=== PATIENT | female | born 1960 | race Caucasian/White ===

== ENCOUNTER → 2016-09-14 | Outpatient (CLI) | payer OTHER ==
[~2016-09-14] MED LIST: ALDACTONE 25MG25 MG PO; ASPIR 8181 MG PO; CIPRO500 MG PO; CYMBALTA60 MG PO; FISH OIL300 MG PO; FLAGYL500 MG PO; FLEXERIL 10 MG10 MG PO; FUROSEMIDE40 MG PO; GLUCOPHAGE 500500 MG GT; IMDUR ER TAB 6060 MG PO; LEVEMIR100 UNIT/1 SQ; METOPROLOL SUC100 MG PO; NEURONTIN 300300 MG PO; POTASSIUM99 M1 PO; PROVENTIL HFA 61 INH INH; SYNTHROID 50 M50 MCG GT; TRAMADOL HCL50 MG PO; VITAMIN D1000 UNIT PO
== END ==
LOC: CT 09-06 13:00
DX: I88.8 Other nonspecific lymphadenitis (principal)
CPT/HCPCS: J7050; Q9962

== ENCOUNTER → 2020-04-01 | Outpatient (CLI) | payer OTHER, SELFPAY | LOC: NM 10:06 | DX: R13.10 Dysphagia, unspecified (principal); R93.3 Abnormal findings on diagnostic imaging of other parts of digestive tract | CPT/HCPCS: 78264; A9541 ==

== ENCOUNTER → 2020-05-27 | Outpatient (CLI) | payer OTHER, SELFPAY | LOC: RAD 13:37 | DX: M25.512 Pain in left shoulder (principal); M25.532 Pain in left wrist; R60.0 Localized edema; M19.032 Primary osteoarthritis, left wrist; M19.042 Primary osteoarthritis, left hand | CPT/HCPCS: 73030; 73110; 73130 ==

== ENCOUNTER → 2021-01-14 | Outpatient (CLI) | payer OTHER | LOC: KOH-I 14:19 | DX: R06.02 Shortness of breath (principal); R05.9 Cough, unspecified; R09.89 Other specified symptoms and signs involving the circulatory and respiratory systems | CPT/HCPCS: 71046 ==

== ENCOUNTER → 2021-03-05 | Outpatient (CLI) | payer OTHER | LOC: KOH-I 13:31 | DX: M25.512 Pain in left shoulder (principal); S46.912A Strain of unspecified muscle, fascia and tendon at shoulder and upper arm level, left arm, initial encounter; M77.8 Other enthesopathies, not elsewhere classified | CPT/HCPCS: 73221 ==

== ENCOUNTER → 2021-11-27 | Outpatient (CLI) | payer OTHER | LOC: MAMO 13:30 | DX: Z12.31 Encounter for screening mammogram for malignant neoplasm of breast (principal) | CPT/HCPCS: 77063; 77067 ==